=== PATIENT | male | born 1985 ===

== ENCOUNTER 2016-11-30 10:16 | Emergency (ER) | payer OTHER ==
[2016-11-30 10:42] VITALS: BP 133/77; PULSE 63; RESP 18; TEMP 99; O2SAT 96
--- NOTE | 2016-11-30 11:05 | C.PDOC ---
History Of Present Illness The patient, a 31 y/o male, presents to the ED for evaluation of left buttock which began yesterday. Patient notes his symptoms began after he lifted a heavy cement bag. He states his symptoms are worse with movement and notes he took Tylenol without significant relief. Patient denies direct injury/trauma to the affected areas, change in sensation, back pain, testicular pain, or penile discharge. Time Seen by Provider: 11/30/16 10:23 Chief Complaint (Nursing): Lower Extremity Problem/Injury History Per: Patient History/Exam Limitations: no limitations Onset/Duration Of Symptoms: Hrs Current Symptoms Are (Timing): Still Present Additional History Per: Patient - Hip Description Of Injury: denies: Fell, Tripped, Struck With Object Past Medical History Reviewed: Historical Data, Nursing Documentation, Vital Signs Vital Signs: Last Vital Signs Temp 99 F 11/30/16 10:20 Pulse 63 11/30/16 10:20 Resp 18 11/30/16 11:09 BP 133/77 11/30/16 10:20 Pulse Ox 96 11/30/16 12:45 - Medical History PMH: No Chronic Diseases Surgical History: No Surg Hx Family History: States: Unknown Family Hx - Social History Hx Alcohol Use: No Hx Substance Use: No - Immunization History Hx Tetanus Toxoid Vaccination: No Hx Influenza Vaccination: No Hx Pneumococcal Vaccination: No Review Of Systems Except As Marked, All Systems Reviewed And Found Negative. Genitourinary: Negative for: Dysuria, Penile Discharge Musculoskeletal: Positive for: Other (+left buttock and hip pain ). Negative for: Back Pain Neurological: Negative for: Weakness, Numbness Physical Exam - Physical Exam Appears: Non-toxic, No Acute Distress Skin: Normal Color, Warm, Dry Head: Atraumatic, Normacephalic Eye(s): bilateral: Normal Inspection, EOMI Nose: Normal Oral Mucosa: Moist Neck: Normal ROM, No Midline Cervical Tenderness, No Paracervical Tenderness, No Step Off Deformity, Supple Lymphatic: Normal Exam, No Inguinal Node Tenderness Chest: Symmetrical, No Deformity, No Tenderness Cardiovascular: Rhythm Regular Respiratory: Normal Breath Sounds Gastrointestinal/Abdominal: Soft, No Tenderness, No Guarding, No Rebound Back: Normal Inspection, No Vertebral Tenderness, No Paraspinal Tenderness Extremity: Normal ROM, Tenderness (left buttock ), No Calf Tenderness, Capillary Refill (less than 2 seconds ), No Deformity, No Swelling Neurological/Psych: Oriented x3, Normal Speech, Normal Cognition, Normal Motor, Normal Sensation Gait: Steady ED Course And Treatment O2 Sat by Pulse Oximetry: 96 (on RA) Pulse Ox Interpretation: Normal - Other Rad Hips/Pelvis XR X-Ray: Interpreted by Me, Viewed By Me, Read By Radiologist Interpretation: Accession No. : [id number]. Patient Name / ID : COLLINS ESTES / [id number]. Exam Date : 11/30/2016 10:55:17 ( Approved ). Study Comment : Sex / Age : M / 31Y. Creator : Alejandro Kelly MD. Dictator : Alejandro Kelly MD. Powder Operator : [employer] Fe[employer] Driller : Alejandro Kelly MD. Approver2 : Report Date : 11/30/2016 11:06:27. My Comment : . PROCEDURE: Left Hip X-ray Radiographs. HISTORY: Pain. No history of recent/ related trauma provided. COMPARISON: None. FINDINGS: There are no osseous abnormalities to suggest fracture. The pelvic ring is intact. Preserved femoral- acetabular relationship. Negative study for protrusio, subluxation or dislocation. Degenerative changes: None. SOFT TISSUES: Normal. OTHER FINDINGS: None. IMPRESSION: No significant or acute findings to account for / related to the clinical presentation. Progress Note: Discussed the risks/benefits of XR imaging with patient. Patient requests XR. Hip/Pelvis XR ordered, results are unremarkable. Micaelanet received Motrin PO. On reassessment, patient is resting comfortably, showing no signs of distress, and is ambuatory in the ED without difficulty. Patient will be given symptomatic treatment and is stable for discharge. He is advised to follow up with PMD within 2-5 days for further evaluation. Reassessment Condition: Improved Disposition - Disposition Referrals: [facility] [Outside] Disposition: HOME/ ROUTINE Disposition Time: 11:03 Condition: STABLE Additional Instructions: Rest and ice the area. Vaya a flaherty mdico o la clnica en 2-5 bernstein sin falta, para mas evaluacin. [place] los medicamentos roxy indicado. Volver a la urban de emergencia en cualquier momento si los sntomas persisten o empeoran. Prescriptions: Naproxen [Naprosyn] 1 tab PO BID PRN #20 tab PRN Reason: Pain Instructions: Muscle Strain (ED) Print Language: [place] - Clinical Impression Clinical Impression: Muscle strain - PA / MEAL COOK / Resident Statement MD/DO has reviewed & agrees with the documentation as recorded. - Scribe Statement The provider has reviewed the documentation as recorded by the Scribe (Yamini Jin) All medical record entries made by the Scribe were at my direction and personally dictated by me. I have reviewed the chart and agree that the record accurately reflects my personal performance of the history, physical exam, medical decision making, and the department course for this patient. I have also personally directed, reviewed, and agree with the discharge instructions and disposition.
--- NOTE | 2016-11-30 11:08 | RAD ---
PROCEDURE: Left Hip X-ray Radiographs. HISTORY: Pain. No history of recent/ related trauma provided COMPARISON: None. FINDINGS: There are no osseous abnormalities to suggest fracture. The pelvic ring is intact. Preserved femoral-acetabular relationship. Negative study for protrusio, subluxation or dislocation. Degenerative changes: None. SOFT TISSUES: Normal. OTHER FINDINGS: None. IMPRESSION: No significant or acute findings to account for/ related to the clinical presentation.
== END 2016-11-30 11:10 | disposition home or self-care (01) ==
LOC: C.ER 10:16
DX: S39.012A Strain of muscle, fascia and tendon of lower back, initial encounter (principal); X50.0XXA Overexertion from strenuous movement or load, initial encounter; Y93.89 Activity, other specified; Y92.89 Other specified places as the place of occurrence of the external cause